=== PATIENT | male | born 1955 | race Caucasian/White ===

== ENCOUNTER → 2018-03-19 | Outpatient (CLI) | payer BC | END | disposition home or self-care (01) | LOC: CFH 11:58 | PROVIDERS: ATTEND Nurse Practitioner Family | DX: R10.9 Unspecified abdominal pain (principal) | CPT/HCPCS: 76770 ==

== ENCOUNTER 2018-05-14 08:24 | Inpatient (IN) | payer BC ==
[~2018-05-14] VITALS: Ht 177.8 cm; Wt 120.5 kg
--- NOTE | 2018-05-14 08:28 | NUR ---
pt in restroom at this time
--- NOTE | 2018-05-14 08:47 | NUR ---
FIRST CONTACT WITH PATIENT. 62 Y/O MALE PRESENTS TO ED WITH C/O CP X 11 DAYS. "THE CHEST PAIN INCREASES WHEN I EAT. I'VE BEEN SICK AND THIS THING IS GOING ON. I'VE STOPPED SOME OF MY MEDICINES BECAUSE I THOUGHT IT WAS THAT." EDPA BEDSIDE. 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
--- NOTE | 2018-05-14 08:53 | NUR ---
PER PT "THE PAIN GETS WORSE WITH STRESS, PHYSICAL ACTIVITY, AND SOME EATING. I'M TAKING MY ALLOPURINOL AND SOMETIMES I'LL TAKE MY BP MEDICATION."
[2018-05-14] MEDS ORDERED: METOPROLOL TARTRATE 50 MG TABLET PO ONE (09:00)
[2018-05-14] MEDS ORDERED: FAMOTIDINE 20 MG TABLET PO ONE (09:00)
[2018-05-14] MEDS ORDERED: MAALOX/HYOSCYAMINE/LIDOCAINE 45 ML BTL PO ONE (09:00)
[2018-05-14] MEDS ORDERED: FAMOTIDINE 20 MG TABLET ONE (09:03)
[2018-05-14] MEDS ORDERED: MAALOX/HYOSCYAMINE/LIDOCAINE 45 ML BTL ONE (09:04)
[2018-05-14] MEDS ORDERED: METOPROLOL TARTRATE 25 MG TABLET ONE (09:04)
--- NOTE | 2018-05-14 09:15 | NUR ---
BREAK RN: PT IN BED, NAD, NO NEEDS AT THIS TIME, UPDATED ON POC, AWAITING LABS
[2018-05-14 09:32] LABS: ALANINE AMINOTRANSFERASE 32 U/L (12-78); ANION GAP 4 mmol/L (5-15); CALCIUM 8.9 mg/dL (8.5-10.1); CHLORIDE 110 mmol/L (98-107); CREATININE 1.26 mg/dL (0.7-1.3)
[2018-05-14 09:36] LABS: ALKALINE PHOSPHATASE 113 U/L (45-117); BASOPHILS # (AUTO) 0.03 x10^3/uL (0-0.1); BASOPHILS % (AUTO) 1 % (0-1); BILIRUBIN,TOTAL 0.7 mg/dL (0.2-1.0); EOSINOPHILS # (AUTO) 0.15 x10^3/uL (0-0.4); EOSINOPHILS % (AUTO) 3 % (1-7); LYMPHOCYTES # (AUTO) 1.36 x10^3/uL (1-3.4); LYMPHOCYTES % (AUTO) 30 % (22-44); MD NO; MEAN CORPUSCULAR HGB CONC 31.5 g/dL (33.2-36.2); MEAN CORPUSCULAR VOLUME 73.2 fL (81-97); MEAN PLATELET VOLUME 8.6 fL (7.4-10.4); MONOCYTES % (AUTO) 9 % (2-9); NEUTROPHILS # (AUTO) 2.56 x10^3/uL (1.8-6.8); NEUTROPHILS % (AUTO) 57 % (42-75); PLATELET COUNT 165 x10^3/uL (130-400); RED BLOOD COUNT 6.45 x10^6/uL (4.38-5.82); RED CELL DISTRIBUTION WIDTH 16.2 % (9.4-14.8); TOTAL PROTEIN 7.4 g/dL (6.4-8.2)
[2018-05-14 09:38] LABS: TROPONIN I 0.712 ng/mL (0.000-0.045)
--- NOTE | 2018-05-14 09:47 | NUR ---
PT SITTING ON GURNEY. NO ACUTE DISTRESS NOTED. NO C/O CP AT THIS TIME. FAMILY BEDSIDE.
[2018-05-14] MEDS ORDERED: ALLO100T30 PO (09:58)
[2018-05-14] MEDS ORDERED: AMLO10TA8 PO (09:58)
[2018-05-14] MEDS ORDERED: NITROGLYCERIN OINT 2%, 1GM TP ONE ×2 (10:30→10:31)
--- NOTE | 2018-05-14 10:37 | NUR ---
NITRO PASTE PLACED ON PTS LEFT UPPER CHEST PER MD ORDER.
[2018-05-14] MEDS ORDERED: SODIUM CHLORIDE 0.9% 1,000 ML IV SCH (11:02)
[2018-05-14] MEDS ORDERED: NITROGLYCERIN 0.4 MG BOTTLE (25 TABS) SL PRN (11:30)
[2018-05-14] MEDS ORDERED: morphine SULFATE 10 MG/ML, 1ML IVPush PRN (11:30)
[2018-05-14] MEDS ORDERED: TEMAZEPAM 15 MG CAPSULE PO PRN (11:30)
[2018-05-14] MEDS ORDERED: METOPROLOL TARTRATE 50 MG TABLET PO SCH (11:30)
[2018-05-14] MEDS ORDERED: ONDANSETRON 2MG/ML, 2ML IVPush PRN (11:30)
[2018-05-14] MEDS ORDERED: hydrALAzine 20 MG/ML, 1ML IVPush PRN (11:30)
[2018-05-14 12:03] LABS: TROPONIN I 0.803 ng/mL (0.000-0.045)
[2018-05-14] MEDS ORDERED: HEPARIN 5,000 UNITS/ML, 1ML IV ONE (13:00)
[2018-05-14] MEDS ORDERED: HEPARIN 5,000 UNITS/ML, 1ML IV PRN (13:00)
[2018-05-14] MEDS: PANTOPRAZOLE 40 MG IV IVPush SCH ×2 (13:12→20:35)
[2018-05-14 13:35] VITALS: BP 150/88
[2018-05-14] MEDS: HEPARIN 25,000 UNITS/500ML PMX 500 ML IV PRN (14:04)
[2018-05-14] MEDS: VALSARTAN 80 MG TABLET PO SCH (14:19)
[2018-05-14 15:43] LABS: CHOL/HDL RATIO 5.4; LDL/HDL RATIO 3.1 (0.5-3.0)
[2018-05-14] MEDS: CARVEDILOL 12.5 MG TABLET PO SCH (18:14)
[2018-05-14 18:16] VITALS: BP 120/71
[2018-05-14 20:10] VITALS: BP 125/69
[2018-05-14] MEDS: ATORVASTATIN 40 MG TABLET PO SCH ×2 (20:35→20:43)
[2018-05-14 22:31] LABS: TROPONIN I 0.764 ng/mL (0.000-0.045)
[2018-05-14] MEDS ORDERED: ACETAMINOPHEN 325 MG TABLET PO PRN (23:30)
[2018-05-15 01:00] VITALS: BP 134/78
[2018-05-15 03:23] LABS: ANION GAP 4 mmol/L (5-15); CALCIUM 8.3 mg/dL (8.5-10.1); CHLORIDE 111 mmol/L (98-107); CREATININE 1.37 mg/dL (0.7-1.3)
[2018-05-15] MEDS ORDERED: ASPIRIN 325 MG TABLET EC PO SCH (06:00)
[2018-05-15] MEDS ORDERED: SODIUM CHLORIDE 0.9% 1,000 ML IV SCH (07:26)
[2018-05-15 08:07] LABS: BASOPHILS # (AUTO) 0.02 x10^3/uL (0-0.1); BASOPHILS % (AUTO) 1 % (0-1); EOSINOPHILS # (AUTO) 0.16 x10^3/uL (0-0.4); EOSINOPHILS % (AUTO) 3 % (1-7); LYMPHOCYTES # (AUTO) 1.53 x10^3/uL (1-3.4); LYMPHOCYTES % (AUTO) 33 % (22-44); MD NO; MEAN CORPUSCULAR HEMOGLOBIN 23.3 pg (27.5-34.5); MEAN CORPUSCULAR HGB CONC 32.1 g/dL (33.2-36.2); MEAN CORPUSCULAR VOLUME 72.4 fL (81-97); MEAN PLATELET VOLUME 8.4 fL (7.4-10.4); MONOCYTES # (AUTO) 0.39 x10^3/uL (0.2-0.8); MONOCYTES % (AUTO) 9 % (2-9); NEUTROPHILS # (AUTO) 2.52 x10^3/uL (1.8-6.8); NEUTROPHILS % (AUTO) 55 % (42-75); PLATELET COUNT 146 x10^3/uL (130-400); RED BLOOD COUNT 5.76 x10^6/uL (4.38-5.82); RED CELL DISTRIBUTION WIDTH 16.3 % (9.4-14.8)
[2018-05-15] MEDS: CARVEDILOL 12.5 MG TABLET PO SCH ×2 (08:11→16:29)
[2018-05-15 08:18] LABS: ALBUMIN 3.5 g/dL (3.4-5.0); ANION GAP 4 mmol/L (5-15); CALCIUM 8.4 mg/dL (8.5-10.1); CHLORIDE 113 mmol/L (98-107); CREATININE 1.29 mg/dL (0.7-1.3)
[2018-05-15 08:50] VITALS: BP 146/94
[2018-05-15] MEDS: PANTOPRAZOLE 40 MG IV IVPush SCH (09:04)
[2018-05-15] MEDS: VALSARTAN 80 MG TABLET PO SCH (09:05)
[2018-05-15] MEDS: HEPARIN 25,000 UNITS/500ML PMX 500 ML IV PRN (11:17)
[2018-05-15] MEDS ORDERED: VERAPAMIL 2.5 MG/ML, 2ML ONE (12:57)
[2018-05-15] MEDS ORDERED: HEPARIN 1,000 UNITS/ML, 10ML ONE (12:57)
[2018-05-15] MEDS ORDERED: LIDOCAINE 2%, 20ML ONE (12:57)
[2018-05-15] MEDS ORDERED: FENTANYL PF 100 MCG/2ML ONE (12:57)
[2018-05-15] MEDS ORDERED: TICAGRELOR 90 MG TABLET ONE (12:57)
[2018-05-15] MEDS ORDERED: BIVALIRUDIN 250 MG ONE ×2 (12:57→13:48)
[2018-05-15] MEDS ORDERED: MIDAZOLAM 1 MG/ML, 5ML ONE (12:57)
[2018-05-15 14:05] VITALS: BP 157/86
[2018-05-15] MEDS ORDERED: ONDANSETRON 2MG/ML, 2ML IVPush PRN (14:30)
[2018-05-15] MEDS ORDERED: BIVALIRUDIN 250 MG in SODIUM CHLORIDE 0.9% 50 ML IV SCH (15:00)
[2018-05-15 15:52] VITALS: BP 175/108
[2018-05-15] MEDS ORDERED: hydrALAzine 20 MG/ML, 1ML IV PRN (16:30)
[2018-05-15] MEDS: PANTOPROZOLE 40MG TABLET PO SCH (17:16)
[2018-05-15] MEDS: ALLOPURINOL 100 MG TABLET PO SCH (17:16)
[2018-05-15] MEDS: SPIRONOLACTONE 25 MG TABLET PO SCH (17:16)
[2018-05-15] MEDS: SODIUM CHLORIDE 0.9% 1,000 ML IV SCH ×2 (19:00→23:30)
[2018-05-15 19:19] VITALS: BP 146/86
[2018-05-15 19:56] VITALS: BP 160/76
[2018-05-15] MEDS: ATORVASTATIN 40 MG TABLET PO SCH (20:56)
[2018-05-15] MEDS: TICAGRELOR 90 MG TABLET PO SCH (20:56)
[2018-05-16 00:30] VITALS: BP 157/88
[2018-05-16 05:30] VITALS: BP 161/104
[2018-05-16] MEDS: CARVEDILOL 12.5 MG TABLET PO SCH (05:31)
[2018-05-16] MEDS: PANTOPROZOLE 40MG TABLET PO SCH (05:31)
[2018-05-16 05:37] LABS: BASOPHILS # (AUTO) 0.05 x10^3/uL (0-0.1); BASOPHILS % (AUTO) 1 % (0-1); EOSINOPHILS # (AUTO) 0.15 x10^3/uL (0-0.4); EOSINOPHILS % (AUTO) 3 % (1-7); LYMPHOCYTES # (AUTO) 1.02 x10^3/uL (1-3.4); LYMPHOCYTES % (AUTO) 19 % (22-44); MD NO; MEAN CORPUSCULAR HEMOGLOBIN 23.8 pg (27.5-34.5); MEAN CORPUSCULAR HGB CONC 32.6 g/dL (33.2-36.2); MEAN CORPUSCULAR VOLUME 72.9 fL (81-97); MEAN PLATELET VOLUME 8.5 fL (7.4-10.4); MONOCYTES # (AUTO) 0.43 x10^3/uL (0.2-0.8); MONOCYTES % (AUTO) 8 % (2-9); NEUTROPHILS # (AUTO) 3.82 x10^3/uL (1.8-6.8); NEUTROPHILS % (AUTO) 70 % (42-75); PLATELET COUNT 153 x10^3/uL (130-400); RED BLOOD COUNT 6.05 x10^6/uL (4.38-5.82); RED CELL DISTRIBUTION WIDTH 16.1 % (9.4-14.8)
[2018-05-16 05:40] LABS: ALBUMIN 3.9 g/dL (3.4-5.0); ANION GAP 6 mmol/L (5-15); CALCIUM 8.7 mg/dL (8.5-10.1); CHLORIDE 113 mmol/L (98-107); CREATININE 1.24 mg/dL (0.7-1.3)
[2018-05-16 07:00] VITALS: BP 145/87
[2018-05-16] MEDS: SODIUM CHLORIDE 0.9% 1,000 ML IV SCH (07:30)
[2018-05-16] MEDS: VALSARTAN 80 MG TABLET PO SCH (08:36)
[2018-05-16] MEDS: SPIRONOLACTONE 25 MG TABLET PO SCH (08:36)
[2018-05-16] MEDS: ALLOPURINOL 100 MG TABLET PO SCH (08:37)
[2018-05-16] MEDS: TICAGRELOR 90 MG TABLET PO SCH (08:37)
[2018-05-16] MEDS ORDERED: ASPIRIN 81 MG TABLET EC PO SCH (09:00)
[2018-05-16] MEDS ORDERED: TICA90TA PO (09:47)
[2018-05-16] MEDS ORDERED: SPIR25TA PO (09:47)
[2018-05-16] MEDS ORDERED: ATOR40TA78 PO (09:47)
[2018-05-16] MEDS ORDERED: CARV12.543 PO (09:47)
[2018-05-16] MEDS ORDERED: VALS80TA30 PO (09:47)
[2018-05-16] MEDS ORDERED: ASPI81TA45 PO (09:47)
== END 2018-05-16 12:00 | disposition home or self-care (01) | DRG 246 ==
LOC: ED 09:25 → EDIP 11:02 → 5SO 12:26 → OBSVTOIN 05-15 13:29 → DCLOUNGE 05-16 11:52
PROVIDERS: ADMIT Internal Medicine; ATTEND Internal Medicine
PROC: 027135Z Dilation of Coronary Artery, Two Arteries with Two Drug-eluting Intraluminal Devices, Percutaneous Approach (ICD-10-PCS; principal; 2018-05-15)
PROC: 4A023N7 Measurement of Cardiac Sampling and Pressure, Left Heart, Percutaneous Approach (ICD-10-PCS; 2018-05-15)
PROC: B2111ZZ Fluoroscopy of Multiple Coronary Arteries using Low Osmolar Contrast (ICD-10-PCS; 2018-05-15)
PROC: B2151ZZ Fluoroscopy of Left Heart using Low Osmolar Contrast (ICD-10-PCS; 2018-05-15)
DX: I21.4 Non-ST elevation (NSTEMI) myocardial infarction (principal); I50.41 Acute combined systolic (congestive) and diastolic (congestive) heart failure; I13.0 Hypertensive heart and chronic kidney disease with heart failure and stage 1 through stage 4 chronic kidney disease, or unspecified chronic kidney disease; D50.9 Iron deficiency anemia, unspecified; E66.9 Obesity, unspecified; Z68.38 Body mass index [BMI] 38.0-38.9, adult; E78.5 Hyperlipidemia, unspecified; G47.33 Obstructive sleep apnea (adult) (pediatric); I16.0 Hypertensive urgency; I25.10 Atherosclerotic heart disease of native coronary artery without angina pectoris; I25.5 Ischemic cardiomyopathy; K21.9 Gastro-esophageal reflux disease without esophagitis; M10.9 Gout, unspecified; N18.3 Chronic kidney disease, stage 3 (moderate); Z80.0 Family history of malignant neoplasm of digestive organs; Z80.51 Family history of malignant neoplasm of kidney; Z87.442 Personal history of urinary calculi; Z87.891 Personal history of nicotine dependence; R73.03 Prediabetes; J06.9 Acute upper respiratory infection, unspecified
CPT/HCPCS: 36415; 93458; 99285; C9600; C9601; 71046; 80048; 80053; 80061; 82040; 82728; 83540; 83550; 83735; 83880; 84100; 84443; 84484; 85025; 85520; 93005; 93306; 99156; 99157; C1769; C1894; G0378; J0583; J1644; J2250; J3010; J3490; C1725; C1874; C1887; C9113; J0360; J7030; Q9967

== ENCOUNTER → 2018-06-10 | Outpatient (CLI) | payer BC ==
[~2018-06-10] MED LIST: ALLO100T30 PO; AMLO10TA8 PO; ASPI81TA45 PO; ATOR40TA78 PO; CARV12.543 PO; SPIR25TA PO; TICA90TA PO; VALS80TA30 PO
== END | disposition home or self-care (01) ==
LOC: CVU 12:28
PROVIDERS: ATTEND Internal Medicine Cardiovascular Disease
DX: I34.0 Nonrheumatic mitral (valve) insufficiency (principal); I25.10 Atherosclerotic heart disease of native coronary artery without angina pectoris; I10 Essential (primary) hypertension; E78.5 Hyperlipidemia, unspecified; Z95.2 Presence of prosthetic heart valve
CPT/HCPCS: 93306

== ENCOUNTER 2019-01-13 09:51 | Emergency (ER) | payer BC ==
[~2019-01-13] VITALS: Ht 177.8 cm; Wt 114.0 kg
[2019-01-13] MEDS ORDERED: SODIUM CHLORIDE FLUSH 10ML SYR IVF ONE (10:30)
[2019-01-13] MEDS ORDERED: NITROGLYCERIN SINGLE TAB 0.4 MG SL PRN (10:30)
[2019-01-13] MEDS ORDERED: NITROGLYCERIN SINGLE TAB 0.4 MG SL ONE (10:44)
[2019-01-13 10:46] LABS: BASOPHILS # (AUTO) 0.04 x10^3/uL (0-0.1); BASOPHILS % (AUTO) 1 % (0-1); EOSINOPHILS # (AUTO) 0.13 x10^3/uL (0-0.4); EOSINOPHILS % (AUTO) 3 % (1-7); LYMPHOCYTES # (AUTO) 1.25 x10^3/uL (1-3.4); LYMPHOCYTES % (AUTO) 31 % (22-44); MD NO; MEAN CORPUSCULAR HEMOGLOBIN 23.7 pg (27.5-34.5); MEAN CORPUSCULAR HGB CONC 31.6 g/dL (33.2-36.2); MEAN PLATELET VOLUME 8.6 fL (7.4-10.4); MONOCYTES # (AUTO) 0.37 x10^3/uL (0.2-0.8); MONOCYTES % (AUTO) 9 % (2-9); NEUTROPHILS % (AUTO) 56 % (42-75); PLATELET COUNT 135 x10^3/uL (130-400); RED BLOOD COUNT 6.07 x10^6/uL (4.38-5.82); RED CELL DISTRIBUTION WIDTH 16.4 % (9.4-14.8)
[2019-01-13 10:55] LABS: ALBUMIN 3.8 g/dL (3.4-5.0); ANION GAP 4 mmol/L (5-15); CALCIUM 8.6 mg/dL (8.5-10.1); CHLORIDE 111 mmol/L (98-107); CREATININE 1.18 mg/dL (0.7-1.3)
[2019-01-13 10:59] LABS: TROPONIN I < 0.015 ng/mL (0.000-0.045)
--- NOTE | 2019-01-13 11:14 | NUR ---
SITTING QUIETLY ON GURNEY, REPORTS "SLIGHT TINGE" (IMPROVED FROM EARLIER). DENIES LIGHTHEADEDNESS, DIZZINESS. MONITORING CONTINUES: NSR.
[2019-01-13] MEDS ORDERED: CARV6.252 PO (11:19)
[2019-01-13] MEDS ORDERED: PRAS10TA9 PO (11:19)
[2019-01-13] MEDS ORDERED: VALS40TA10 PO (11:19)
--- NOTE | 2019-01-13 11:21 | NUR ---
DR JACKSON BS TO DISCUSS POC, POSSIBLE ADMISSION. PT HESITANT ABOUT ADMISSION. STATES HE'S BEEN UNDER A LOT OF STRESS LATELY.
[2019-01-13 12:22] VITALS: BP 150/97
== END 2019-01-13 12:25 | disposition home or self-care (01) ==
LOC: ED 12:00
DX: R07.2 Precordial pain (principal); I10 Essential (primary) hypertension; I25.2 Old myocardial infarction; Z98.61 Coronary angioplasty status
CPT/HCPCS: 36415; 71045; 80048; 82040; 84484; 85025; 93005; 99284